=== PATIENT | female | born 1965 | race Caucasian/White ===

== ENCOUNTER 2016-05-08 09:48 | Emergency (ER) | payer OTHER ==
[2016-05-08] MEDS ORDERED: NAPROXEN 250 MG TABLET PO ONE (11:25)
[2016-05-08] MEDS ORDERED: AMOXICILLIN TR/POT CLAVULANATE 500-125 MG TAB PO ONE (11:25)
--- NOTE | 2016-05-08 11:28 | ER Document Report ---
ED General - General Chief Complaint: Blood Pressure Problem Stated Complaint: HIGH BLOOD PRESSURE ISSUES Mode of Arrival: Ambulatory Information source: Patient Notes: 51-year-old female presents with complaints of headache left arm numbness with complaints of right-sided headache. Patient notes she had no otitis media was started on Ciprodex but notes that symptoms have been ongoing. Patient denies any fevers or chills nausea vomiting or diarrhea. Patient notes her blood pressure was high when checked at school, but now that it has come down her numbness has resolved as well TRAVEL OUTSIDE OF THE [place] IN LAST 30 DAYS: No - HPI Onset: Just prior to arrival Onset/Duration: Sudden Quality of pain: Achy Severity: Mild Pain Level: 1 Associated symptoms: Earache, Headache Exacerbated by: Denies Relieved by: Denies Similar symptoms previously: Yes Recently seen / treated by doctor: Yes - Related Data Allergies/Adverse Reactions: No Known Allergies Allergy (Verified 05/08/16 09:54) Past Medical History - Social History Smoking Status: Current Every Day Smoker Cigarette use (# per day): No Chew tobacco use (# tins/day): No Smoking Education Provided: No Frequency of alcohol use: Occasional Drug Abuse: None Family History: None Patient has suicidal ideation: No Patient has homicidal ideation: No Pulmonary Medical History: Denies: Hx Tuberculosis Renal/ Medical History: Denies: Hx Peritoneal Dialysis Past Surgical History: Reports: Hx Appendectomy, Hx Section - x 2, Hx Cholecystectomy, Hx Hysterectomy - Immunizations Hx Diphtheria, Pertussis, Tetanus Vaccination: No Review of Systems - Review of Systems Notes: PHYSICAL EXAMINATION: GENERAL: Well-appearing, well-nourished and in no acute distress. HEAD: Atraumatic, normocephalic. EYES: Pupils equal round and reactive to light, extraocular movements intact, conjunctiva are normal. ENT: Right TM tender movement with pus NECK: Normal range of motion, supple without lymphadenopathy LUNGS: Breath sounds clear to auscultation bilaterally and equal. No wheezes rales or rhonchi. HEART: Regular rate and rhythm without murmurs ABDOMEN: Soft, nontender, nondistended abdomen. No guarding, no rebound. No masses appreciated. Female : deferred Musculoskeletal: Normal range of motion, no pitting or edema. No cyanosis. NEUROLOGICAL: Cranial nerves grossly intact. Normal speech, normal gait. Normal sensory, motor exams PSYCH: Normal mood, normal affect. SKIN: Warm, Dry, normal turgor, no rashes or lesions noted. Physical Exam - Vital signs Vitals: Temp Pulse Resp BP Pulse Ox 98 F 98 18 158/105 H 97 05/08/16 09:50 05/08/16 09:50 05/08/16 09:50 05/08/16 09:50 05/08/16 09:50 Course - Re-evaluation Re-evalutation: 05/08/16 11:26 Patient refuses to have any CT imaging performed to rule out TIA CVA. I will therefore treated for otitis media and have given very strict return precautions regarding neurological deficits After performing a Medical Screening Examination, I estimate there is LOW risk for ACUTE GLAUCOMA, TEMPORAL ARTERITIS, MENINGITIS, INCRANIAL HEMORRHAGE, or ISCHEMIC STROKE thus I consider the discharge disposition reasonable. The patient and I have discussed the diagnosis and risks, and we agree with discharging home with close follow-up with the understanding that symptoms and presentations can change. We also discussed returning to the Emergency Department immediately if new or worsening symptoms occur. We have discussed the symptoms which are most concerning (e.g., changing or worsening symptoms, new numbness or weakness, vomiting, fever) that necessitate immediate return. - Vital Signs Vital signs: Temp Pulse Resp BP Pulse Ox 98.0 F 98 27 H 158/105 H 96 05/08/16 09:55 05/08/16 09:55 05/08/16 10:22 05/08/16 09:55 05/08/16 10:22 Discharge - Discharge Clinical Impression: hypertension resolved Headache Qualifiers: Headache type: unspecified Headache chronicity pattern: acute headache Intractability: not intractable Qualified Code(s): R51 - Headache Otitis media Qualifiers: Otitis media type: unspecified Laterality: right Chronicity: subacute Condition: Stable Disposition: HOME, SELF-CARE Instructions: Headache ([facility]) Prescriptions: Amox Tr/Potassium Clavulanate [Augmentin 875-125 Tablet] 1 tab PO BID 10 Days Promethazine HCl [Phenergan 25 mg Tablet] 1 - 2 tab PO Q6H PRN #15 tablet PRN Reason:
[2016-05-08 11:45] VITALS: BP 118/68
== END 2016-05-08 11:45 | disposition home or self-care (01) ==
LOC: ER 09:48
DX: R51 Headache (principal); R03.0 Elevated blood-pressure reading, without diagnosis of hypertension; Z79.899 Other long term (current) drug therapy
CPT/HCPCS: 99283